=== PATIENT | male | born 2005 | race Caucasian/White ===

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

== ENCOUNTER 2025-10-02 20:53 | Emergency (ER) | payer SELFPAY ==
[2025-10-02 20:57] VITALS: BP 143/88; PULSE 75; RESP 16; TEMP 36.6; O2SAT 99; BMI 31.1
--- OUTSIDE RECORDS SUMMARY | 2025-10-02 20:58 | XMS_ITS | Encounter Summary ---
Author Organization [facility] Address [address] [place] [address] Care Team Providers Care Deicer Finisher Name Role Phone Unavailable Primary Care Provider Unavailabl e Encounter Details Date Type Department Care Team (Late st Contact Info) Description 12/03/2006 Outpatient Historical [facility] [place] [address] [place] [id number] Social History Tobacco Use Types Packs/Day Years Used Date Smoking Tobacco: Never Assessed Sex and Gender Information Value Date Recorded Sex Assigned at Not on file 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
--- OUTSIDE RECORDS SUMMARY | 2025-10-02 20:58 | XMS_ITS | Encounter Summary ---
Author Organization [facility] Address [address] [place] [address] Care Team Providers Care Special Services Agent Name Role Phone Unavailable Primary Care Provider Unavailabl e Encounter Details Date Type Department Care Team (Late st Contact Info) Description 07/03/2007 Outpatient Historical [facility] [place] [address] [address] [place] [phone] Social History Tobacco Use Types Packs/Day Years Used Date Smoking Tobacco: Never Assessed Sex and Gender Information Value Date Recorded Sex Assigned at Not on file 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
--- OUTSIDE RECORDS SUMMARY | 2025-10-02 20:59 | XMS_ITS | Clinical Summary ---
Author Organization [facility] Address [address] 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
--- NOTE | 2025-10-02 21:14 | XRR_ITS ---
PROCEDURE INFORMATION: Exam: XR Left Hand Exam date and time: 10/02/2025 9:18 PM Age: 20 years old Clinical indication: Injury or trauma; Other: Laceration while cutting glue stick; Left; Index finger; Additional info: Deep lac to L pointer TECHNIQUE: Imaging protocol: Radiologic exam of the left hand. Views: 3 or more views. COMPARISON: No relevant prior studies available. FINDINGS: Bones/joints: Normal. Soft tissues: Laceration defect of the soft tissues of the 2nd digit. XR/XR hand LT 2V [id number] IMPRESSION: As above.
--- NOTE | 2025-10-02 21:15 | W.ED.WOUNDLC ---
HPI - Wound/Laceration General: Chief Complaint: Wound/Laceration Stated Complaint: Cut on LT hand pointer finger Time Seen by Provider: 10/02/25 21:06 History of Present Illness: Patient is a 20-year-old male with no past medical history who presents to the ED with a cut to his left second finger. Was using a kitchen knife to cut up food when it slipped and made a cut and the dorsal side of his second finger, had a mild amount of bleeding that was able to be controlled but because of it stopped came into the ED for evaluation. Denies any motor weakness or sensory deficits. No SI or HI. States he had a tetanus shot about 4 years ago. Associated symptoms: Denies chills or fever(s) Related Data Previous Rx's ?Medication ?Instructions ?Recorded sertraline 50 mg tablet 50 mg PO DAILY 30 days #30 tabs 04/29/22 Allergies Allergy/AdvReac Type Severity Reaction Status Date / Time divalproex sodium (From Allergy ADR-Seizure Verified 10/02/25 21:02 Depakote) Review of Systems General: Reports: 10 or more systems reviewed and unremarkable except in HPI and below Const: Denies: fever(s) or chills Eyes: Denies: change in vision or eye discharge Card: Denies: chest pain, palpitations or swelling of feet/ankles Resp: Denies: dyspnea or productive cough GI: Denies: abdominal pain or diarrhea : Denies: difficulty urinating Musc: Denies: neck pain or back pain Skin/Breast: Reports: other (Hand laceration/bleeding); Denies: rash or jaundice Neuro: Denies: headache(s), numbness in extremities or weakness in extremities Mao/Lymph: Denies: easy bruising or easy bleeding [facility] ED PFSH: Medical History (Updated 10/03/25 @ 00:00 by KIMBERLY Gerard) Seizure-like activity Family History Denies family history of Clotting disorder Family history of premature coronary artery disease Social History Smoking and tobacco/nicotine status: former use of tobacco/nicotine Physical Exam Narrative: EXAM NARRATIVE: Patient overall well-appearing, afebrile and vital signs stable on arrival, no acute distress. head normocephalic, PERRL, moist mucous membranes, no cervical LAD. breathing comfortably on RA, saturating well, clear BL and no adventitious breath sounds, able to speak in full sentences without getting SOB, no signs of respiratory distress. NSR with no murmurs, no leg swelling, 2+ pulses throughout, good cap refill. Abdomen soft, nontender, nondistended, no localizing or peritonitic signs, no overlying skin changes, no CVA ttp. 3 cm linear laceration to dorsum of second finger just superior to PIP joint, no active bleeding, neurovascularly intact digits and hand, 2+ radial pulse, other extremities without apparent deformity or injury. GCS 15, AAOx4, able to answer questions and follow commands appropriately, moving all 4 extremities symmetrically and spontaneoulsy. Normal mood and affect. Procedures Laceration Laceration 1: Site: upper extremity Side (If applicable): left Size (cm): 3 Description: linear Depth: simple, single layer Local Anesthetic: lidocaine 1% Amount of anesthesia used (mL): 3 Pre-repair: wound explored, irrigated extensively and deep structures intact Number of sutures: 2 Course Vital Signs: Vital signs: Vital Signs Temperature 97.8 F 10/02/25 20:57 Pulse Rate 75 10/02/25 20:57 Respiratory Rate 16 10/02/25 20:57 Blood Pressure 143/88 10/02/25 20:57 Pulse Oximetry 99 10/02/25 20:57 Oxygen Delivery Me thod Room Air 10/02/25 20:57 MDM - Wound/Laceration Medical Decision Making -ddx: Laceration, foreign body, fracture, dislocation - Patient with mild mechanism of cutting injury, bleeding controlled on exam, due to depth and near joint space since he is active with his hands, we elected to repair his wound, x-ray negative for any foreign body, fracture or dislocation. Cleaned the wound thoroughly and repaired it with 2 dissolvable stitches and had a wrapped, supportive care recommendations given, patient stable and discharged home. Lab Data Radiology Impressions Hand X-Ray 10/02/25 21:14 IMPRESSION: As above. All radiology interpretation(s) finalized by discharge Discharge Plan Discharge Patient Disposition: Home Clinical Impression: Laceration Condition: Stable Prescriptions: No Action sertraline 50 mg Tablet 50 mg PO DAILY 30 Days Qty: 30 1RF Discharge Orders: Discharge ED (Routine); Ordered 10/02/25 Ordered By: Stevo Monson Discharge Diet: Usual diet Discharge Activity: Increase activity as tolerated Patient Instructions: Laceration (ED), Opioid Safety, Pain Management, Patient Portal & Nacho Instructions Activity Restrictions/Additional Instructions: You were seen for the cut to your finger, you were evaluated with an x-ray which did not show any underlying fracture, this was repaired with 2 stitches, these will dissolve on their own in 7 to 10 days, over the next week, keep this covered when at work to best prevent any infection. Ensure you wash it with warm water and soap multiple times a day as well. Return to the ED with severe worsening of the pain, severe bleeding or swelling at the site, inability to move the finger, and any other emergent concerns. Print Language: Maori Coding Level of Care Code ED Mutual Funds Agent for Susana Schwartz
== END 2025-10-02 22:00 | disposition home or self-care (01) ==
PROVIDERS: Emergency Provider Student in an Organized Health Care Education/Training Program
DX: S61.211A Laceration without foreign body of left index finger without damage to nail, initial encounter (principal); Z87.891 Personal history of nicotine dependence; W26.0XXA Contact with knife, initial encounter
CPT/HCPCS: 12002; 73120; 99283; J9999